=== PATIENT | male | born 1960 | race Caucasian/White ===

== ENCOUNTER → 2024-01-12 12:00 | Outpatient (REF) | payer BC, SELFPAY ==
--- NOTE | 2023-12-15 09:25 | PN.DIAED02 ---
Referral
DSME Class Series Code: [id number]
Referred For: Diabetes Self-Management Training
PHI Release Authorization Form Signed: Yes
Demographic
(1) Type 2 diabetes mellitus
Status: Acute Code(s): E11.9 - Type 2 diabetes mellitus without complications
Patient's primary language-: Nepali
Education: College degree
Occupation: Professional (bench assembler electrical)
Hours Worked/Week: 20-40 (40)
Shift: Day
- Social
Primary Support Person: Family
Primary Care Takers: Self
Living Arrangements: Family
- Learning Methods
Preferred Method: Reading, Hands-on demonstration, Video
Barriers to Learning: None
Glycemic Control
- Blood Glucose Monitoring Assessment
Date: 12/15/23
Blood glucose monitoring at home: Yes
Monitor Brands: OneTouch (Verio)
Frequency: 2x per day (currently testing FBS, new testing pattern given)
Time: fasting, after breakfast, after lunch, after dinner
- Hemoglobin A1c
Date: 10/31/23
A1C Percentage (%): 6.1 (07/15/2023 A1C 7.3%)
Medical History of Diabetes
Family Diabetes History: Mother, Sibling (sister), Grandmother (on paternal side)
Previous Diabetes Education: No
Previous visit with Dietitian: No
Complications/Comorbidity/Specialist: Hyperlipidemia, Pulmonary disease (sleep apnea), Other / symptoms (tinnitus)
Measures
- Anthropometrics
Height: 5 ft 7 in
Actual Weight: 192 lb 2 oz (204# 07/3033)
- Blood Pressure / Pulse
Blood pressure: 113/62
- Diabetes Management
Medical Management for Diabetes: Complete physical exam (08/19/2023), Dental exam (02/26/24), Dilated eye exam (06/28/23)
Self-Care
- Tobacco Usage
Do you now, or have you ever smoked?: Never smoked
- Alcohol & Drugs Usage
Drinks Alcohol: Yes
Amount/day: Other (1/week)
- Meals & Dining
Meals & Dining: Patient skips meals: No (he did prior to diagnosis), Food Intolerance / Allergy: No, Cultural / Yarsanism Dietary Needs: No
Primary Food School Age Program Teacher: Self
Primary Hospital Nurse: Self
Dining Out Frequency: 1-3x per week (1)
- Physical Activity
Physical Limitation: No
Patient participates in physical Activity: Yes
Activity Types: walking (after dinner)
Duration: 21-30 minutes
Frequency: 3-5x per week
Intensity: Easy
- Patient-Self Assessment
Diabetes Knowledge: Good
Feelings About Diabetes: Sadness / Depression
General Health: Good
Importance of Health: Extremely
Stress Level: High
Diabetes Interferes With:: Family/social activities
Depression Survey Score: 4
Care Plan
- Education Needs
Patient Education Needs: Diabetes disease process, Chronic complications, Acute complications, Medication, Monitoring, Physical activity, Psychosocial Adjustment, Nutritional management, Goal setting & problem solving
Recommended Diabetes Training Program based on assessment: Outpatient Diabetes Education Program
- Plan of Care
Plan of Care:
Byron diagnosed 07/2023 with A1C of 7.3%. He called the office after our last spring session had started and will attend the 01/26 classes. He has purchased a Verio Flex glucometer and testing FBS. Reviewed proper testing technique, which he is
following except for the hand pumping prior to testing. his lancet is set at 6, recommend pumping the hand so he can decrease that setting. He has been using 2 fingers,suggest rotating and using all fingers. New testing pattern given with rationale
and handout provided with pattern and expected results. His FBS this morning was 115 mg/dl which he states is the average. In addition to monitoring, he has made some dietary changes, eating fruit/nuts for snack vs chips, eliminating late night
snack and is not skipping meals. Suggest having protein with each meal and snack, handout on snack options provided. He has also started with some exercise, walking after dinner and doing some light free weights, will use the treadmill in inclement
weather. Taking Metformin ER 500 mg with dinner. Goals established and directions to classroom given, reminded him that his may attend as a support person if desired.
--- NOTE | 2023-12-15 09:41 | PN.DIAED04 ---
Education Record
- Education Record
Class Attended: Class 1 (pre registration 12/15/23 for outpt DSME classes starting 01/12/24)
DSME Class Series Code: [id number]
Instructor: Registered Nurse (Le Honeycutt, RN, BSN, [facility][NOTE 3])
Class Curriculum:
Outpatient Diabetes Education Program:
Initial Assessment (45 minutes)
Individualized assessment
Develop personal strategies to promote health and behavior change
Development of diabetes self-management support plan
Class Length (mins): 45
Pre-Program Knowledge: Demonstrates competency
Pre-Test Score (%): 88
Goals
- Goal 1
Being Active: Exercise 30 minutes-5 times per week (walking/treadmill (inclement weather) and using free weights.)
Goals To Be Evaluated: Exercise 30 mins-5x/week
- Goal 2
Healthy Eating: Make better food choices, Reduce portion sizes
Goals To Be Evaluated: Make better food choices. Reduce portion sizes
- Goal 3
Monitoring: Take blood sugar in the prescribed pattern (Provided handout with testing pattern and expected results.)
Goals To Be Evaluated: Test BG-prescribed times
--- NOTE | 2024-01-13 14:12 | PN.DIAED14 ---
This is to notify you that your patient with diabetes, FELIPE TRINH ( 1960), has enrolled in our diabetes self-management classes that are being held at [facility].
These classes will include an introduction to diabetes, diet, medication, exercise and prevention of complications. At the end of our class series, you will receive a report of your patient's participation and progress for your records.
Please contact me at the [facility], , if there is any particular information regarding your patient that might be helpful to me.
Sincerely,
SHAW Aleman-, [facility]
Director
Diabetes & Nutrition Services
== END ==
LOC: DES 12:00
PROVIDERS: ATTENDING PHYSICIAN Family Medicine
DX: E11.9 Type 2 diabetes mellitus without complications (principal)
CPT/HCPCS: 99078

== ENCOUNTER → 2024-01-19 12:00 | Outpatient (REF) | payer BC, SELFPAY ==
--- NOTE | 2024-01-20 10:36 | PN.DIAED04 ---
Education Record
- Education Record
Class Attended: Class 2
DSME Class Series Code: [id number]
Instructor: Registered Dietitian (Celeste Barone, RD, LDN, CDE)
Class Length (mins): 120
== END ==
LOC: DES 12:00
PROVIDERS: ATTENDING PHYSICIAN Family Medicine
DX: E11.9 Type 2 diabetes mellitus without complications (principal)
CPT/HCPCS: 99078

== ENCOUNTER → 2024-01-26 12:00 | Outpatient (REF) | payer BC, SELFPAY ==
--- NOTE | 2024-01-27 13:38 | PN.DIAED04 ---
Education Record
- Education Record
Class Attended: Class 3
DSME Class Series Code: [id number]
Instructor: Registered Dietitian (Celeste Barone, RD, LDN, CDE)
Class Length (mins): 120
Post-Class 2 & 3 Test Score (%): 88
== END ==
LOC: DES 12:00
PROVIDERS: ATTENDING PHYSICIAN Family Medicine
DX: E11.9 Type 2 diabetes mellitus without complications (principal)
CPT/HCPCS: 99078

== ENCOUNTER → 2024-02-09 12:00 | Outpatient (REF) | payer BC, SELFPAY ==
--- NOTE | 2024-02-10 11:30 | PN.DIAED20 ---
This is to notify you that your patient with diabetes, FELIPE TRINH ( 1960), has attended the following Diabetes Self-Management Education Classes.
_X_ Class 1 (120 minutes): Diabetes Overview - monitoring, stress/psychosocial adjustment, support, goal setting
_X_ Class 2 (120 minutes): Meal Planning - serving sizes, menu plans
_X_ Class 3 (120 minutes): Introduction to Carbohydrate Counting, Analyzing Food Labels
___ Class 4 (120 minutes): Medication, Exercise and Activity
_X_ Class 5 (120 minutes): Sick Day Management, Strategies to Reduce Complications, Problem Solving, Resources
The following behavioral goals were identified:
Exercise 30 mins-5x/week
Make better food choices
Reduce portion sizes
Test BG-prescribed times
A follow-up call will be made within three to six months to evaluate attainment of these goals and to check post-program Hemoglobin A1c and overall progress. All class participants are encouraged to contact me if I can be any further assistance in
learning how to manage their diabetes.
Sincerely,
SHAW Aleman-, [facility]
Director
Diabetes & Nutrition Services
--- NOTE | 2024-02-11 14:43 | PN.DIAED04 ---
Education Record
- Education Record
Class Attended: Class 5
DSME Class Series Code: [id number]
Instructor: Nurse Practitioner (SHAW Weaver)
Class Curriculum:
Outpatient Diabetes Education Program:
Class 5 (120 minutes)
Prevent, detect, and treat acute complications
Prevent, detect, and treat chronic complications through risk reduction
Develop personal strategies to address psychosocial issues and concerns
Development of diabetes self-management support plan
Letter to physician with DSMS plan attached sent
Class Length (mins): 120
Post-Program Knowledge: Demonstrates competency
Post-Test Score (%): 90
Post-Program Assessment
- Post-Program Assessment
Actual Weight: 87.997 kg
Blood pressure: 134/70
Post-Program Depression Survey Score: 4
Reviewing Previous Goals?: Yes
Pre-Program Depression Survey Score: 4
- Goals 1 Evaluation
Goals To Be Evaluated: Exercise 30 mins-5x/week
- Goals 2 Evaluation
Goals To Be Evaluated: Make better food choices. Reduce portion sizes
- Goals 3 Evaluation
Goals To Be Evaluated: Test BG-prescribed times
== END ==
LOC: DES 12:00
PROVIDERS: ATTENDING PHYSICIAN Family Medicine
DX: E11.9 Type 2 diabetes mellitus without complications (principal)
CPT/HCPCS: 99078

== ENCOUNTER → 2024-03-08 08:26 | Outpatient (REF) | payer BC, SELFPAY | LOC: DES 08:26 | PROVIDERS: ATTENDING PHYSICIAN Family Medicine | DX: E11.9 Type 2 diabetes mellitus without complications (principal) | CPT/HCPCS: 99078 ==

== ENCOUNTER 2025-02-18 06:22 | Day surgery (SDC) | payer BC, SELFPAY ==
[2025-02-18 10:54] LABS: Glucose - Point of Care 107 mg/dl (70-99)
== END 2025-02-18 12:30 | disposition home or self-care (01) ==
LOC: GI 06:22
PROVIDERS: ATTENDING PHYSICIAN Specialist
DX: Z12.11 Encounter for screening for malignant neoplasm of colon (principal); K63.5 Polyp of colon; Z86.0101 Personal history of adenomatous and serrated colon polyps
CPT/HCPCS: 45385; 45380; 82962; 88305